=== PATIENT | male | born 1995 | race Hispanic/Latino ===

== ENCOUNTER 2023-10-31 08:20 | Emergency (ER) | payer OTHER ==
[~2023-10-31] VITALS: Ht 162.6 cm; Wt 81.6 kg
[~2023-10-31 08:20] MED LIST: AMOX-426 PO
[2023-10-31] MEDS: KETOROLAC 60 MG VIAL (30MG/ML) IM ONE (09:57)
[2023-10-31] MEDS: TETANUS/DIPHTHERIA TOXOID [ADULT] 0.5 ML VIAL IM ONE (10:07)
[2023-10-31] MEDS ORDERED: AMOX-427 PO (10:23)
[2023-10-31 10:57] VITALS: BP 122/78; PULSE 78; RESP 18; O2SAT 98
== END 2023-10-31 10:53 | disposition home or self-care (01) ==
LOC: EDH 08:20
DX: S61.210A Laceration without foreign body of right index finger without damage to nail, initial encounter (principal); Z98.890 Other specified postprocedural states; Z88.8 Allergy status to other drugs, medicaments and biological substances; W45.8XXA Other foreign body or object entering through skin, initial encounter; Y93.89 Activity, other specified; Y92.89 Other specified places as the place of occurrence of the external cause; Y99.8 Other external cause status
CPT/HCPCS: 99284; 90714; 73130; 96372; 90471; J1885

== ENCOUNTER 2024-05-11 12:36 | Emergency (ER) | payer SELFPAY ==
[~2024-05-11] VITALS: Ht 162.6 cm; Wt 81.6 kg
[~2024-05-11 12:36] MED LIST changes: +AMOX-427 PO
[2024-05-11] MEDS ORDERED: IBUP-2070 PO (13:41)
[2024-05-11] MEDS: ketOROlac 15MG/ML VIAL (15MG/ML) IM ONE (14:31)
[2024-05-11 14:32] VITALS: BP 185/85; PULSE 85; RESP 16; TEMP 98.3; O2SAT 98
[2024-05-11] MEDS: amLODIPine 5 MG TAB PO ONE (15:20)
[2024-05-11] MEDS ORDERED: AMLO-257 PO (16:18)
== END 2024-05-11 16:32 | disposition home or self-care (01) ==
LOC: EDH 12:36
DX: M54.41 Lumbago with sciatica, right side (principal); G89.29 Other chronic pain; R20.2 Paresthesia of skin; I10 Essential (primary) hypertension; F17.200 Nicotine dependence, unspecified, uncomplicated; Z79.899 Other long term (current) drug therapy; Z98.890 Other specified postprocedural states; Z88.8 Allergy status to other drugs, medicaments and biological substances
CPT/HCPCS: 99283; 96372; J1885

== ENCOUNTER 2025-07-17 09:22 | Emergency (ER) | payer BC ==
[~2025-07-17] VITALS: Ht 162.6 cm; Wt 82.6 kg
[~2025-07-17 09:22] MED LIST changes: +AMLO-257 PO; +IBUP-1492 PO
[2025-07-17] MEDS ORDERED: LORA10TA7 PO (09:37)
[2025-07-17] MEDS ORDERED: FLUT16H NS (09:37)
--- NOTE | 2025-07-17 09:38 | ERN ---
General Chief Complaint: Cough Stated Complaint: COUGH/ BODY ACHE/ CHILLS Time Seen by MD: 09:24 Source: patient History of Present Illness Initial Comments Patient is a 29-year-old gentleman coming in for cough. Per patient he was evaluated at an urgent care swabbed everything was negative. He has not had any fever or chills. Allergies: Coded Allergies: No Known Drug Allergies (Unverified Allergy, Unknown, 07/17/25) niacin (Verified Allergy, Unknown, 02/20/16) Home Meds Active Scripts Amlodipine Besylate (Amlodipine Besylate) 5 Mg Tablet, 5 MG PO DAILY for 30 Days, #30 TAB Avoid alcohol while taking this medication Prov:WINNIE VANG MD 05/11/24 Ibuprofen (Ibuprofen) 600 Mg Tablet, 600 MG PO Q6H PRN for PAIN for 7 Days, #30 TAB Prov:WINNIE VANG MD 05/11/24 Amoxicillin/Potassium Clav (Augmentin Xr 1,000-62.5 Tab) 1,000 Mg-62.5 Mg Tab.er.12h, 1 EACH PO BID, #15 TAB Prov:YELENA GARRETT MD 10/31/23 Amoxicillin/Potassium Clav (Augmentin 500-125 Tablet) 1 Each Tablet, 1 EACH PO BID, #20 TAB Prov:MORENITA FARAH MD 02/24/16 Past Medical History Past Medical History: Hypertension Medical History Other: GI ABSCESS Past Surgical History: None Social History Social History: Smokers, ETOH ROS Dictation CONSTITUTIONAL: No chills, no fever, no weakness, no diaphoresis, no malaise. HEAD/FACE: No signs of trauma. EENT: No eye pain, no blurred vision, no tearing, no double vision, no ear pain, no ear discharge, no nose pain, no nasal congestion, no throat pain, no throat swelling, no mouth pain. RESPIRATORY: cough, no orthopnea, no SOB, no stridor, no wheezing. CARDIOVASCULAR: No chest pain, no edema, no palpitations, no syncope. GASTROINTESTINAL/ABDOMINAL: No abdominal pain, no constipation, no diarrhea, no nausea, no vomiting. GENITOURINARY: No abnormal discharge, no dysuria, no frequent urination, no hematuria. No complaints of pain in the genitals. MUSCULOSKELETAL: No back pain, no gout, no joint pain, no joint swelling, no muscle pain, no muscle stiffness, no neck pain. INTEGUMENTARY: No change in color, no change in hair/nails, no dryness, no lesion, no lumps, no rash. NEUROLOGICAL/PSYCH: No anxiety, not depressed, no emotional problem, no headache, no numbness, no pre-existing deficit, no history of seizures, no tremors, no weakness. HEMATOLOGIC/LYMPHATIC: Not anemic, no history of blood clots, no apparent bleeding, no bruising, glands not swollen. All Systems Negative, Except as Noted. Physical Exam Physical Exam Dictation VITAL SIGNS: Reviewed. GENERAL APPEARANCE: Alert, oriented x3, no acute distress, obese. HEAD AND FACE: Non-traumatic. EYES: PERRL, pink conjunctivas, eyelid no trauma, anterior chamber clear. EARS: Pinnas intact and no signs of trauma or erythema. Ear canals clear and no discharge. TMs erythema. NOSE: No discharge, no bleeding. OROPHARYNX: Mouth normal, teeth no caries, tongue pink. Pharynx erythema. Tonsils no exudates, no abscesses noted. Mucous membrane moist. NECK: Supple, non-tender, no thyromegaly, no masses, no JVD, no bruits. BREAST: Deferred. CHEST: No tenderness, no crepitus, no paradoxical movement, no retractions. LUNGS: Clear, well-ventilated, symmetric, no rales, no wheezing, no rhonchi, no stridor, good breath sounds bilaterally. HEART: Regular rate, regular rhythm, no murmur, no gallops. VASCULAR: No peripheral edema. ABDOMEN: Soft, positive bowel sounds, nondistended, no guarding, nontender, no rebound, no masses no hepatomegaly, no splenomegaly, no Zepeda's sign, no hernias. RECTAL: Deferred. GENITAL: Deferred. NEUROLOGICAL: Normal speech, gross motor function intact, gross sensory function intact. MUSCULOSKELETAL: Neck nontender, full range of motion, back nontender, full range of motion. EXTREMITIES: Nontender, full range of motion. SKIN: Color pink, dry, no turgor, no rash, no lacerations, no abrasions, no contusions. LYMPHATICS: Deferred. Results Laboratory and Microbiology Labs Reviewed?: Yes MDM MDM: Differential diagnosis: URI, sinusitis, otitis media Rationale: Tests considered and ordered secondary to shared decision making incl ude: Previous outside records reviewed: Old ER visits. Risk of complication and/or morbidity or mortality of patient management: None Medications-Per medication reconciliation Need for hospitalization: Patient does not meet criteria for hospitalization. Need for emergency major/minor surgery: No Patient is a 29-year-old gentleman coming in off. On physical exam there is a bilateral tympanic membrane erythema more significantly in the right tympanic membrane. Oropharyngeal erythema with postnasal drainage. Patient will be discharged in stable condition with a diagnosis sinusitis medication will be provided for symptomatic relief. I did advised him appropriate follow up with PCP for ongoing management ED Course Orders Procedure Category Date Status Time Dexamethasone 4mg/Ml PHA 07/17/25 Complete 1ml Vial (Dexametha 09: Guaifenesin-Codeine PHA 07/17/25 Complete Syrup 5ml (Robitussi 09:30 Current Medications Medications (Trade) Dose Ordered Sig/Serge Route PRN Reason Start Time Stop Time Status Last Admin Dose Admin Dexamethasone Sodium Phosphate (dexaMETHasone 4MG/ML 1ML VIAL) 4 mg ONCE ONCE IM 07/17/25 09:30 07/17/25 09:31 DC Guaifenesin/ Codeine Phosphate (RobiTUSSin AC 5 ML SYRUP) 5 ml ONCE ONCE PO 07/17/25 09:30 07/17/25 09:31 DC Vital Signs Date Time Temp Pulse Resp B/P (MAP) Pulse Ox O2 Delivery O2 Flow Rate FiO2 07/17/25 09:25 97.9 71 18 146/91 99 Room Air 0 DX & DISP Disposition: Discharge Departure Impression: Primary Impression: Sinusitis Condition: Stable Scripts Loratadine (Loratadine) 10 Mg Tablet 1 TAB PO DAILY for allergy symptoms for 30 Days, #30 TAB 0 Refills Prov: ALTAF DUNN MD 07/17/25 Fluticasone Propionate (Flonase Nasal [place]) 50 Mcg/Actuation [place] 2 SPRAY NS DAILY, #16 GM 0 Refills Prov: ALTAF DUNN MD 07/17/25 Additional Instructions: FOLLOW-UP WITH PRIMARY CARE PROVIDER IN 1 TO 2 DAYS. TAKE MEDICATIONS DIRECTED HERE IN THE EMERGENCY ROOM. OKAY TO CONTINUE HOME MEDICATIONS UNLESS OTHERWISE DISCUSSED DURING YOUR VISIT IN THE EMERGENCY ROOM TODAY. RETURN TO YOUR NEAREST EMERGENCY ROOM IF SYMPTOMS WORSEN OR IF THERE IS NO IMPROVEMENT. CALL 911 IF YOU NEED IMMEDIATE ASSISTANCE. TAKE TYLENOL [id number] NEEDED AND IF NO CONTRAINDICATIONS ARE PRESENT. INCREASE ORAL HYDRATION. A WOUND CULTURE OR URINE CULTURE WAS ORDERED HERE IN THE EMERGENCY ROOM DEPARTMENT PLEASE FOLLOW-UP WITH PRIMARY CARE PROVIDER AND ADVISE THEM TO GET REPORTS FROM OUR FACILITY. IF YOU HAD ANY BELINDA WRAP/SPLINTS THAT WERE APPLIED HERE, PLEASE DO NOT REMOVE THEM UNTIL YOU SEE YOUR PRIMARY CARE OR SPECIALTY. Referrals: Referrals: SELF,REFERRAL (PCP) KATHERINE FAROOQ MD Time of Disposition: 09:37 ALTAF DUNN MD Jul 17, 2025 09:38
[2025-07-17 09:41] VITALS: BP 146/91; PULSE 71; RESP 18; TEMP 97.8; O2SAT 99
--- NOTE | 2025-07-17 09:48 | NUR ---
PT STABLE VITALS WNL PT MEDICATED, GIVEN INSTRUCTIONS BY DR. DUNN PT REQUESTING EXCUSE FOR SEVERAL DAYS FOR WORK OFF INFORMED PT HE IS CLEARED MEDICALLY TO RETURN TO WORK TODAY PER DR. DUNN IF ADDITIONAL DAYS NEED PT TO SEE HIS PCP. NO IV AT THIS TIME, PT GIVEN RX FOR PHARMACY, PT WALKED TO ED LOBBY DROVE HISELF HOME.
== END 2025-07-17 09:55 | disposition home or self-care (01) ==
LOC: EDH 09:22
DX: J32.9 Chronic sinusitis, unspecified (principal); F17.200 Nicotine dependence, unspecified, uncomplicated; I10 Essential (primary) hypertension
CPT/HCPCS: 99284; 96372; J1100